=== PATIENT | male | born 1945 | race Caucasian/White ===

== ENCOUNTER 2017-09-05 08:33 | Outpatient (RCR) | payer MEDICARE, BC ==
[~2017-09-05 08:33] MED LIST: DIGO250T; IBAN150T8; LEVO500T2 PO; LISI10TA2; METF500T5; METO100T12; SULF1TAB35 PO; TRAM-42 PO
== END 2017-09-06 | disposition home or self-care (01) ==
LOC: CR3 08:33
PROVIDERS: ATTEND Family Medicine
DX: Z29.8 Encounter for other specified prophylactic measures (principal)

== ENCOUNTER 2017-10-04 06:00 | Outpatient (RCR) | payer MEDICARE, BC | END 2017-10-06 | disposition home or self-care (01) | LOC: CR3 06:00 | PROVIDERS: ATTEND Family Medicine | DX: Z29.8 Encounter for other specified prophylactic measures (principal) ==

== ENCOUNTER 2017-11-05 08:44 | Outpatient (RCR) | payer MEDICARE, BC | END 2017-11-08 | disposition home or self-care (01) | LOC: CR3 08:44 | PROVIDERS: ATTEND Family Medicine | DX: Z29.8 Encounter for other specified prophylactic measures (principal) ==

== ENCOUNTER 2017-11-27 06:00 | Outpatient (RCR) | payer MEDICARE, BC | END 2017-12-06 | disposition home or self-care (01) | LOC: CR3 06:00 | PROVIDERS: ATTEND Family Medicine | DX: Z29.8 Encounter for other specified prophylactic measures (principal) ==

== ENCOUNTER → 2018-01-09 | Outpatient (RCR) | payer MEDICARE, BC ==
[~2018-01-09] MED LIST changes: +METF-397; -METF500T5
== END | disposition home or self-care (01) ==
LOC: CR3 12-10 11:50
PROVIDERS: ATTEND Family Medicine
DX: Z29.8 Encounter for other specified prophylactic measures (principal)

== ENCOUNTER 2018-02-08 08:24 | Outpatient (RCR) | payer MEDICARE, BC | END 2018-02-10 | disposition home or self-care (01) | LOC: CR3 08:24 | PROVIDERS: ATTEND Family Medicine | DX: Z29.8 Encounter for other specified prophylactic measures (principal) ==

== ENCOUNTER → 2018-03-13 | Outpatient (RCR) | payer MEDICARE, BC | END | disposition home or self-care (01) | LOC: CR3 02-11 09:00 | PROVIDERS: ATTEND Family Medicine | DX: Z29.8 Encounter for other specified prophylactic measures (principal) ==

== ENCOUNTER 2018-04-08 22:44 | Emergency (ER) | payer MEDICARE, BC ==
[~2018-04-08] VITALS: Ht 167.6 cm; Wt 92.5 kg
[2018-04-08] MEDS ORDERED: LIDOCAINE/EPI 2% 1:100,00 (XYLOCAINE) 20 ML VIAL ONE (22:50)
--- NOTE | 2018-04-08 23:08 | ED Integumentary General ---
General Chief Complaint: Skin/Wound Problems Stated Complaint: R LEG BLEEDING/ON BLOOD THINNERS Nursing Triage Note: AMBULATORY TO ED WITH BLEEDING TO RLE PT DISCOVERED AFTER GETTING OUT OF SHOWER. PRESSURE DRSG CURRENTLY IN PLACE. STATES HE IS ON BLOOD THINNERS. Source: patient, spouse Exam Limitations: no limitations History of Present Illness Date Seen by Provider: Apr 08, 2018 Time Seen by Provider: 22:46 Initial Comments The patient presents to the ER by private conveyance with his significant other and chief complaint that he just got out of the shower and noticed some bleeding coming out of his right lower leg. He is on Xarelto for atrial fibrillation. He is not having any chest pain shortness of breath or history of anemia or low blood counts. He says he put a dressing over it and it slowed down but it wouldn't stop bleeding. He does not remember banging on anything. He does have diabetes. Tetanus shot is up-to-date in the last 5 years. Allergies and Home Medications Allergies Coded Allergies: No Known Drug Allergies (Unverified , 01/28/16) Home Medications Levofloxacin 500 Mg Tablet, 500 MG PO DAILY Prescribed by: ELSY HUANG on 01/28/16 2345 Sulfamethoxazole/Trimethoprim 1 Each Tablet, 1 EACH PO BID Prescribed by: ELSY HUANG on 01/28/16 2345 Tramadol HCl 50 Mg Tablet, 50 MG PO Q4H Prescribed by: ELSY HUANG on 01/29/16 0102 Patient Home Medication List Home Medication List Reviewed: Yes Review of Systems Review of Systems Constitutional: No chills, No diaphoresis EENTM: No eye pain, No tearing Respiratory: No cough, No hemoptysis Cardiovascular: No chest pain, No palpitations Gastrointestinal: No abdominal pain, No constipation, No nausea, No vomiting Genitourinary: No discharge, No dysuria Musculoskeletal: No back pain, No joint pain Past Zojyiwc-Sinift-Vaxnfq Hx Patient Social History Alcohol Use: Denies Use Recreational Drug Use: No Smoking Status: Former Smoker Type Used: Cigarettes Former Smoker, Quit: May 07, 1986 Recent Foreign Travel: No Contact w/Someone Who Travel: No Recent Infectious Disease Expo: No Recent Hopitalizations: No Immunizations Up To Date Tetanus Booster (TDap): Less than 5yrs Date of Pneumonia Vaccine: Mar 07, 2018 Date of Influenza Vaccine: Mar 07, 2018 Past Medical History Surgeries: Yes (CABG X 2--3 VESSEL FOLLOWED BY 4 VESSEL YEARS LATER) CABG, Prostatectomy Respiratory: No Cardiac: Yes Atrial Fibrillation, Coronary Artery Disease, Hypertension Neurological: No Genitourinary: No Gastrointestinal: No Musculoskeletal: No Endocrine: Yes Diabetes, Non-Insulin dep Cancer: Yes Prostate Psychosocial: No Integumentary: No Blood Disorders: No Physical Exam Vital Signs Vital Signs - First Documented 04/08/18 22:47 Temp 98.3 Pulse 116 Resp 19 B/P (MAP) 162/92 (115) Capillary Refill : Less Than 3 Seconds General Appearance: WD/WN, no apparent distress Cardiovascular: normal peripheral pulses, tachycardia (110), irregularly irregular Respiratory: no respiratory distress, no accessory muscle use Neurologic/Psychiatric: no motor/sensory deficits, alert, normal mood/affect, oriented x 3 Skin: other (right distal anterior lateral hewitt has a 1-2 mm punctate puncture wound that is slowly oozing bright red blood. Nonpulsatile. There is no evidence of excoriation or other wound around the wound whole.) Procedures/Interventions Wound Location: Lower Extremities Other Wound Location Right distal anterior lateral hewitt Wound Length (cm): 0.2 Wound's Depth, Shape: superficial, linear Wound Explored: clean Betadine Prep?: Yes Anesthesia: Lidocaine w/ Epi (2%) Volume Anesthetic (ccs): 2 Wound Debrided: minimal Suture: Prolene Suture Size: 4-0 Number of Sutures: 1 Sterile Dressing Applied?: Yes Progress Wound was cleaned thoroughly with Betadine and chlorhexidine. It was infiltrated with 2 cc through the wound channel of 2% lidocaine with epinephrine. This slowed the bleeding down significantly and then a figure-of- eight single stitch was placed in causing immediate hemostasis. A 4 x 4 was folded in the quarters and placed directly over the stitch and then 2 4 x 4's were placed over that and wrapped using the elastic bandage brought in by the patient. Patient tolerated procedure well. Progress/Results/Core Measures Results/Orders My Orders Orders - SHERICE JALLOH Lidocaine/Epi 2% 1:100,000 (Xylocaine/Ep (04/08/18 22:50) Lidocaine/Epi 2% 1:100,000 (Xylocaine/Ep (04/08/18 23:15) Medications Given in ED Current Medications Medications Dose Ordered Sig/Yamileth Route Start Time Stop Time Status Last Admin Dose Admin Lidocaine/ Epinephrine 20 ml STK-MED ONCE .ROUTE 04/08/18 22:50 04/08/18 22:53 DC 04/08/18 22:55 20 ML Vital Signs/I&O 04/08/18 22:47 Temp 98.3 Pulse 116 Resp 19 B/P (MAP) 162/92 (115) Blood Pressure Mean: 115 Departure Impression Primary Impression: Puncture wound Disposition: 01 HOME, SELF-CARE Condition: Improved Departure-Patient Inst. Decision time for Depature: 23:08 Referrals: LORRAINE MURRAY DO (PCP/Family) Primary Care Physician Patient Instructions: Laceration Repair With Stitches (DC) Add. Discharge Instructions: The one stitch will need to come out in 7-10 days. You may return to the ER for wound recheck and stitch removal had no additional cost. He may also follow-up with your primary care provider at the scheduled appointment. Keep the leg elevated above the level of your heart if you start to have swelling. 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 All discharge instructions reviewed with patient and/or family. Voiced understanding. Scripts Sulfamethoxazole/Trimethoprim (Bactrim Ds Tablet) 1 Each Tablet 1 EACH PO BID for 3 Days, #6 TAB 0 Refills Prov: SHERICE JALLOH 04/08/18 Copy Copies To 1: LORRAINE MURRAY TITUS J Apr 08, 2018 23:08
[2018-04-08] MEDS ORDERED: SULF1TAB35 PO (23:11)
[2018-04-08 23:15] VITALS: BP 162/92
[2018-04-08] MEDS ORDERED: LIDOCAINE/EPI 2% 1:100,00 (XYLOCAINE) 20 ML VIAL INJ ONE (23:15)
== END 2018-04-08 23:17 | disposition home or self-care (01) ==
LOC: EDUNIT# 22:44 → ER 22:45
DX: S81.801A Unspecified open wound, right lower leg, initial encounter (principal); I48.91 Unspecified atrial fibrillation; E11.9 Type 2 diabetes mellitus without complications; I10 Essential (primary) hypertension; I25.10 Atherosclerotic heart disease of native coronary artery without angina pectoris; Z85.46 Personal history of malignant neoplasm of prostate; Z79.01 Long term (current) use of anticoagulants; Z87.891 Personal history of nicotine dependence; Z95.1 Presence of aortocoronary bypass graft; Z90.79 Acquired absence of other genital organ(s); X58.XXXA Exposure to other specified factors, initial encounter

== ENCOUNTER 2018-04-12 08:08 | Outpatient (RCR) | payer MEDICARE, BC | END 2018-04-13 | disposition home or self-care (01) | LOC: CR3 08:08 | PROVIDERS: ATTEND Family Medicine | DX: Z29.8 Encounter for other specified prophylactic measures (principal) ==

== ENCOUNTER 2018-05-08 08:13 | Outpatient (RCR) | payer MEDICARE, BC | END 2018-05-15 | disposition home or self-care (01) | LOC: CR3 08:13 | PROVIDERS: ATTEND Family Medicine | DX: Z29.8 Encounter for other specified prophylactic measures (principal) ==

== ENCOUNTER 2018-06-26 08:15 | Outpatient (RCR) | payer MEDICARE, BC | END 2018-06-27 | disposition home or self-care (01) | LOC: CR3 08:15 | PROVIDERS: ATTEND Family Medicine | DX: Z29.8 Encounter for other specified prophylactic measures (principal) ==

== ENCOUNTER 2018-07-26 08:10 | Outpatient (RCR) | payer MEDICARE, BC | END 2018-07-27 | disposition home or self-care (01) | LOC: CR3 08:10 | PROVIDERS: ATTEND Family Medicine | DX: Z29.8 Encounter for other specified prophylactic measures (principal) ==

== ENCOUNTER → 2018-08-28 | Outpatient (RCR) | payer MEDICARE, BC | END | disposition home or self-care (01) | LOC: CR3 07-29 08:15 | PROVIDERS: ATTEND Family Medicine | DX: Z29.8 Encounter for other specified prophylactic measures (principal) ==

== ENCOUNTER 2018-09-27 08:30 | Outpatient (RCR) | payer MEDICARE, BC | END 2018-09-28 | disposition home or self-care (01) | LOC: CR3 08:30 | PROVIDERS: ATTEND Family Medicine | DX: Z29.8 Encounter for other specified prophylactic measures (principal) ==

== ENCOUNTER 2018-10-29 06:00 | Outpatient (RCR) | payer MEDICARE, BC | END 2018-10-31 | disposition home or self-care (01) | LOC: CR3 06:00 | PROVIDERS: ATTEND Family Medicine | DX: Z29.8 Encounter for other specified prophylactic measures (principal) ==

== ENCOUNTER 2018-11-29 08:09 | Outpatient (RCR) | payer MEDICARE, BC | END 2018-11-30 | disposition home or self-care (01) | LOC: CR3 08:09 | PROVIDERS: ATTEND Family Medicine | DX: Z29.8 Encounter for other specified prophylactic measures (principal) ==

== ENCOUNTER → 2019-01-01 | Outpatient (RCR) | payer MEDICARE, BC | END | disposition home or self-care (01) | LOC: CR3 12-02 08:00 | PROVIDERS: ATTEND Family Medicine | DX: Z29.8 Encounter for other specified prophylactic measures (principal) ==

== ENCOUNTER 2019-01-31 07:59 | Outpatient (RCR) | payer MEDICARE, BC | END 2019-02-01 | disposition home or self-care (01) | LOC: CR3 07:59 | PROVIDERS: ATTEND Family Medicine | DX: Z29.8 Encounter for other specified prophylactic measures (principal) ==

== ENCOUNTER → 2019-03-05 | Outpatient (RCR) | payer MEDICARE, BC | END | disposition home or self-care (01) | LOC: CR3 02-03 08:00 | PROVIDERS: ATTEND Family Medicine | DX: Z29.8 Encounter for other specified prophylactic measures (principal) ==

== ENCOUNTER 2019-04-02 08:47 | Outpatient (RCR) | payer MEDICARE, BC | END 2019-04-06 | disposition home or self-care (01) | LOC: CR3 08:47 | PROVIDERS: ATTEND Family Medicine | DX: Z29.8 Encounter for other specified prophylactic measures (principal) ==

== ENCOUNTER 2019-05-05 09:09 | Outpatient (RCR) | payer MEDICARE, BC | END 2019-05-07 | disposition home or self-care (01) | LOC: CR3 09:09 | PROVIDERS: ATTEND Family Medicine | DX: Z29.8 Encounter for other specified prophylactic measures (principal) ==

== ENCOUNTER 2019-06-06 08:10 | Outpatient (RCR) | payer MEDICARE, BC ==
[~2019-06-06 08:10] MED LIST changes: -DIGO250T; +DIGO250T3; +IBAN150T21; -IBAN150T8
== END 2019-06-08 | disposition home or self-care (01) ==
LOC: CR3 08:10
PROVIDERS: ATTEND Family Medicine
DX: Z29.8 Encounter for other specified prophylactic measures (principal)

== ENCOUNTER → 2019-07-09 | Outpatient (RCR) | payer MEDICARE, BC | END | disposition home or self-care (01) | LOC: CR3 06-09 08:00 | PROVIDERS: ATTEND Family Medicine | DX: Z29.8 Encounter for other specified prophylactic measures (principal) ==

== ENCOUNTER 2019-07-18 07:59 | Outpatient (RCR) | payer MEDICARE, BC | END 2019-08-09 | disposition home or self-care (01) | LOC: CR3 07:59 | PROVIDERS: ATTEND Family Medicine | DX: Z29.8 Encounter for other specified prophylactic measures (principal) ==

== ENCOUNTER 2020-12-01 06:51 | Emergency (ER) | payer MEDICARE, BC ==
[~2020-12-01] VITALS: Ht 165 cm; Wt 93.4 kg
[~2020-12-01 06:51] MED LIST changes: -LISI10TA2; +LISI10TA25; -SULF1TAB35 PO; +SULF1TAB38 PO
[2020-12-01 07:09] VITALS: BP 144/104
--- NOTE | 2020-12-01 07:45 | ED General ---
General Chief Complaint: Skin/Wound Problems Stated Complaint: BLEEDING ON CHEST WON'T STOP Nursing Triage Note: PT AMB TO RM 5 W C/O BLEEDING FROM CHEST SX 2200 YESTERDAY. PT STATES HE HAD A "PIMPLE LIKE THING" ON HIS CHEST THAT POPPED WHEN HE WAS IN THE SHOWER. PT CAME IN HOLDING PAPER TOWELS OVER A SATURATED BAND AID. DENIES PAIN. Source of Information: Patient Exam Limitations: No Limitations History of Present Illness Date Seen by Provider: Dec 01, 2020 Time Seen by Provider: 06:55 Initial Comments This is 75-year-old gentleman presents to the emergency room with a punctate area of bleeding on his right chest wall. This started last night around 22:00. He is on Xarelto for atrial fibrillation and frequently has problems with skin hemorrhages. He has required treatment in the ER for this in the past. He notes no particular lesion or injury that triggered the bleeding. They have tried prolonged direct pressure at home without success. Allergies and Home Medications Allergies Coded Allergies: No Known Drug Allergies (Unverified , 01/28/16) Home Medications Levofloxacin 500 Mg Tablet, 500 MG PO DAILY Prescribed by: ELSY HUANG on 01/28/16 2345 Sulfamethoxazole/Trimethoprim 1 Each Tablet, 1 EACH PO BID Prescribed by: ELSY HUANG on 01/28/16 2345 Sulfamethoxazole/Trimethoprim 1 Each Tablet, 1 EACH PO BID Prescribed by: SHERICE JALLOH on 04/08/18 2311 Tramadol HCl 50 Mg Tablet, 50 MG PO Q4H Prescribed by: ELSY HUANG on 01/29/16 0102 Patient Home Medication List Home Medication List Reviewed: Yes Review of Systems Review of Systems Constitutional: no symptoms reported Cardiovascular: see HPI Skin: see HPI Hematologic/Lymphatic: See HPI Past Oqbigmo-Fvbrru-Dygfyo Hx Patient Social History Tobacco Use?: No Smoking Status: Never a Smoker Substance use?: No Alcohol Use?: No Pt feels they are or have been: No Immunizations Up To Date Tetanus Booster (TDap): Less than 5yrs First/Initial COVID19 Vaccinat: 2020 Second COVID19 Vaccination Preet: 2020 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 Past Medical History Surgeries: Yes (CABG X 2--3 VESSEL FOLLOWED BY 4 VESSEL YEARS LATER) CABG, Prostatectomy Respiratory: No Cardiac: Yes Atrial Fibrillation, Coronary Artery Disease, Hypertension Neurological: No Genitourinary: No Gastrointestinal: No Musculoskeletal: No Endocrine: Yes Diabetes, Non-Insulin dep Cancer: Yes Prostate Psychosocial: No Integumentary: No Blood Disorders: No Physical Exam Vital Signs Vital Signs - First Documented 12/01/20 07:09 Temp 35.8 Pulse 118 Resp 18 B/P (MAP) 144/104 (117) Pulse Ox 97 O2 Delivery Room Air Capillary Refill : Less Than 3 Seconds Height, Weight, BMI Height: 5'6.00" Weight: 204lbs. oz. [id number]; 34.00 BMI Method:Stated General Appearance: No Apparent Distress HEENT: Normal ENT Inspection Respiratory: Lungs Clear, Normal Breath Sounds, No Accessory Muscle Use Cardiovascular: No Murmur, Tachycardia Neurologic/Psychiatric: Alert, Oriented x3, Normal Mood/Affect Skin: Warm/Dry, Other (Fairly punctate area of bleeding on the right chest wall with no evidence of exophytic lesion, inflammation, or other abnormality.) Procedures/Interventions Suture Size: 4-0 Progress/Results/Core Measures Suspected Sepsis SIRS Temperature: Pulse: 118 Respiratory Rate: 18 Blood Pressure 144 /104 Mean: 117 Results/Orders Vital Signs/I&O 12/01/20 07:09 Temp 35.8 Pulse 118 Resp 18 B/P (MAP) 144/104 (117) Pulse Ox 97 O2 Delivery Room Air Capillary Refill : Less Than 3 Seconds Blood Pressure Mean: 117 Progress Note : Progress Note A small pad of Surgicel was applied directly over the area of bleeding. None adherent dressing was then placed over the top of the Surgicel. Direct pressure was applied for 10 minutes. This resolved the bleeding. A gauze pressure dressing was then placed over the Surgicel with foam tape. Patient was noted to be tachycardic and he was advised to take his rhythm controlling medications as soon as he returned home. He reports chronic tachycardia. Instructions were reviewed for treatment of further bleeding. Read discharge instructions for discussion. The remainder of the Surgicel gauze was sent home with the patient for use on future bleeds. Departure Impression Primary Impression: Skin hemorrhages Additional Impression: Anticoagulated Disposition: 01 HOME, SELF-CARE Condition: Improved Departure-Patient Inst. Decision time for Depature: 07:42 Referrals: LORRAINE MURRAY DO (PCP/Family) Primary Care Physician Patient Instructions: Going Home on Blood Thinners Add. Discharge Instructions: Keep the current pressure dressing on for couple of hours. Replace this with a looser dressing in a few hours. If bleeding returns, use a small square of the Surgicel gauze and placed directly over the bleeding area. Place a piece of nonstick dressing over the top of the Surgicel gauze. Then applied direct pressure for about 10 minutes. If this does not stop the bleeding, return to the emergency room. If you have any further bleeding today please return to the emergency department. It would be best if you could avoid showering until tomorrow to allow the skin beneath the clot to heal before it is washed. Do not scrub directly over the Surgicel and clot. Allow it to slough off naturally. Elevating the areas of bleeding should be helpful also. In this particular case, sitting upright or lying with your left side down may be helpful. If you have further bleeding today, it would be best to skip your Xarelto dose tonight. Call if you have questions or concerns. Return to the ER if you have any other significant problems or concerns. All discharge instructions reviewed with patient and/or family. Voiced understanding. Copy Copies To 1: LORRAINE MURRAY JOSHUA T MD Dec 01, 2020 07:45
== END 2020-12-01 07:48 | disposition home or self-care (01) ==
LOC: EDUNIT# 06:51 → ER 06:54
DX: R23.3 Spontaneous ecchymoses (principal); R00.0 Tachycardia, unspecified; I10 Essential (primary) hypertension; I25.10 Atherosclerotic heart disease of native coronary artery without angina pectoris; I48.91 Unspecified atrial fibrillation; E11.9 Type 2 diabetes mellitus without complications; Z95.1 Presence of aortocoronary bypass graft; Z79.01 Long term (current) use of anticoagulants
CPT/HCPCS: 99282

== ENCOUNTER → 2021-07-04 | Outpatient (CLI) | payer MEDICARE, BC | LOC: WOUNDCARE 08:56 | PROVIDERS: ATTEND Family Medicine | DX: L97.222 Non-pressure chronic ulcer of left calf with fat layer exposed (principal); I87.332 Chronic venous hypertension (idiopathic) with ulcer and inflammation of left lower extremity; E11.622 Type 2 diabetes mellitus with other skin ulcer; E11.65 Type 2 diabetes mellitus with hyperglycemia; I89.0 Lymphedema, not elsewhere classified; E66.01 Morbid (severe) obesity due to excess calories; E11.52 Type 2 diabetes mellitus with diabetic peripheral angiopathy with gangrene | CPT/HCPCS: A6197; G0463; 99214 ==

== ENCOUNTER → 2021-07-12 | Outpatient (CLI) | payer MEDICARE, BC | LOC: WOUNDCARE 10:58 | PROVIDERS: ATTEND Family Medicine | DX: I87.332 Chronic venous hypertension (idiopathic) with ulcer and inflammation of left lower extremity (principal); E11.622 Type 2 diabetes mellitus with other skin ulcer; E11.65 Type 2 diabetes mellitus with hyperglycemia; I89.0 Lymphedema, not elsewhere classified; E66.01 Morbid (severe) obesity due to excess calories; Z68.34 Body mass index [BMI] 34.0-34.9, adult | CPT/HCPCS: 99212 ==

== ENCOUNTER → 2022-06-19 | Outpatient (CLI) | payer MEDICARE, BC | LOC: WOUNDCARE 13:20 | PROVIDERS: ATTEND Family Medicine | DX: I96 Gangrene, not elsewhere classified (principal); I87.332 Chronic venous hypertension (idiopathic) with ulcer and inflammation of left lower extremity; I89.0 Lymphedema, not elsewhere classified; L97.222 Non-pressure chronic ulcer of left calf with fat layer exposed; L03.116 Cellulitis of left lower limb; E11.622 Type 2 diabetes mellitus with other skin ulcer; E11.65 Type 2 diabetes mellitus with hyperglycemia; E66.01 Morbid (severe) obesity due to excess calories; Z68.35 Body mass index [BMI] 35.0-35.9, adult | CPT/HCPCS: 11042; 87070; 87205; A6197; G0463; 87077 ==

== ENCOUNTER → 2022-06-26 | Outpatient (CLI) | payer MEDICARE, BC | LOC: WOUNDCARE 12:43 | PROVIDERS: ATTEND Family Medicine | DX: L97.222 Non-pressure chronic ulcer of left calf with fat layer exposed (principal); E11.622 Type 2 diabetes mellitus with other skin ulcer; E11.65 Type 2 diabetes mellitus with hyperglycemia; I87.332 Chronic venous hypertension (idiopathic) with ulcer and inflammation of left lower extremity; I89.0 Lymphedema, not elsewhere classified; L03.116 Cellulitis of left lower limb; E66.01 Morbid (severe) obesity due to excess calories; A49.01 Methicillin susceptible Staphylococcus aureus infection, unspecified site; E11.52 Type 2 diabetes mellitus with diabetic peripheral angiopathy with gangrene | CPT/HCPCS: 11042; A6021; G0463 ==

== ENCOUNTER → 2022-06-29 | Outpatient (CLI) | payer MEDICARE, BC | LOC: WOUNDCARE 13:20 | PROVIDERS: ATTEND Family Medicine | DX: E11.622 Type 2 diabetes mellitus with other skin ulcer (principal); L97.222 Non-pressure chronic ulcer of left calf with fat layer exposed; E11.65 Type 2 diabetes mellitus with hyperglycemia; I87.332 Chronic venous hypertension (idiopathic) with ulcer and inflammation of left lower extremity; I89.0 Lymphedema, not elsewhere classified; L03.116 Cellulitis of left lower limb; E66.01 Morbid (severe) obesity due to excess calories; A49.01 Methicillin susceptible Staphylococcus aureus infection, unspecified site | CPT/HCPCS: 29581; A6021; G0463 ==

== ENCOUNTER → 2022-07-07 | Outpatient (CLI) | payer MEDICARE, BC | LOC: WOUNDCARE 08:12 | PROVIDERS: ATTEND Family Medicine | DX: L97.222 Non-pressure chronic ulcer of left calf with fat layer exposed (principal); E11.622 Type 2 diabetes mellitus with other skin ulcer; E11.65 Type 2 diabetes mellitus with hyperglycemia; I87.332 Chronic venous hypertension (idiopathic) with ulcer and inflammation of left lower extremity; I89.0 Lymphedema, not elsewhere classified; L03.116 Cellulitis of left lower limb; E66.01 Morbid (severe) obesity due to excess calories; A49.01 Methicillin susceptible Staphylococcus aureus infection, unspecified site | CPT/HCPCS: 99212 ==